=== PATIENT | female | born 1935 | race Caucasian/White ===

== ENCOUNTER → 2017-11-26 05:00 | Outpatient (REF) | payer MEDICARE, SELFPAY ==
[2017-11-26 09:35] LABS: Hemoglobin 12.6 g/dl (12.0-15.0); Mean Corp Hgb Conc 31.5 g/gl (32-36); Mean Corpuscular Hgb 29.7 pg (27.0-32.0); Mean Corpuscular Volume 94.3 fL (81-99); Mean Platelet Vol. 10.2 fl (6.2-12.0); Platelet Count 311 K/mm3 (150-450); RBC Distribution Width SD 46.2 fl (35.1-43.9); Red Blood Count 4.24 M/mm3 (4.2-5.4); White Blood Count 8.6 K/mm3 (4.4-11.0)
[2017-11-26 09:47] LABS: Scan Indicated on CBC? Y/N NO
[2017-11-26 10:06] LABS: Vitamin D,25 Hydroxy 27.1 ng/mL (29.95-100.01)
[2017-11-26 10:15] LABS: ALB/GLOB Ratio 0.9 RATIO (0.9-2.4); AST(SGOT) 25 U/L (15-37); Alanine Aminotransfer ALT/SGPT 27 U/L (13-56); Alkaline Phosphatase 69 U/L (45-117); Anion Gap 11 (5-15); BUN 26 mg/dL (7-18); BUN/Creat Ratio 19.8 RATIO (10-20); Calcium,Total 9.7 mg/dL (8.5-10.1); Chloride 103 mmol/L (98-107); Creatinine, Serum 1.31 mg/dL (0.55-1.02); EST Glomerular Filtration Rate 41 mL/min (>60); Est Glom Filt Rate - Afr Amer 50 mL/min (>60); Globulin 3.2 g/dL (2.2-4.2); Glucose 92 mg/dL (74-106); Potassium 5.6 mmol/L (3.5-5.1); Protein, Total 6.2 g/dL (6.4-8.2); Sodium Level 135 mmol/L (136-145); Thyroid Stim Hormone (TSH) 6.18 uIU/mL (0.358-3.74)
== END ==
LOC: OLS.ACW200 05:00
PROVIDERS: Visit Provider Family Medicine
DX: E11.9 Type 2 diabetes mellitus without complications (principal)
CPT/HCPCS: 36415; 80053; 82306; 84443; 85027

== ENCOUNTER → 2017-11-28 05:00 | Outpatient (REF) | payer MEDICARE, SELFPAY ==
[2017-11-28 09:55] LABS: Anion Gap 9 (5-15); BUN 32 mg/dL (7-18); BUN/Creat Ratio 21.8 RATIO (10-20); Calcium,Total 9.9 mg/dL (8.5-10.1); Chloride 103 mmol/L (98-107); Creatinine, Serum 1.47 mg/dL (0.55-1.02); EST Glomerular Filtration Rate 36 mL/min (>60); Est Glom Filt Rate - Afr Amer 44 mL/min (>60); Glucose 86 mg/dL (74-106); Magnesium 1.9 mg/dL (1.6-2.6); Potassium 4.7 mmol/L (3.5-5.1); Sodium Level 137 mmol/L (136-145); Thyroid Stim Hormone (TSH) 9.94 uIU/mL (0.358-3.74)
== END ==
LOC: OLS.ACW200 05:00
PROVIDERS: Visit Provider Family Medicine
DX: I50.33 Acute on chronic diastolic (congestive) heart failure (principal); I25.10 Atherosclerotic heart disease of native coronary artery without angina pectoris; E11.9 Type 2 diabetes mellitus without complications; M62.81 Muscle weakness (generalized)
CPT/HCPCS: 36415; 80048; 83735; 84443